=== PATIENT | male | born 1970 | race Two or more races ===

== ENCOUNTER 2021-08-25 18:52 | Emergency (ER) | payer MEDICAID ==
[~2021-08-25] VITALS: Ht 165.1 cm; Wt 65.3 kg
--- NOTE | 2021-08-25 19:37 | NUR ---
Assisted patient to restroom. Patient has unsteady gait and smells of ETOH. Patient admits to drinking [employer]. Found a small bottle of alcohol in patient pocket.
[2021-08-25 20:25] LABS: CREATININE 0.8 mg/dL (0.6-1.3); POTASSIUM 3.6 mmol/L (3.5-5.1)
[2021-08-25 20:31] LABS: BILIRUBIN,DIRECT 0.1 mg/dL (0.0-0.2); BILIRUBIN,TOTAL 0.3 mg/dL (0.2-1.0); HEMATOCRIT 41.4 % (36.7-47.1); MEAN CORPUSCULAR HEMOGLOBIN 31.7 uug (23.8-33.4); MEAN CORPUSCULAR VOLUME 92.5 fL (73.0-96.2); PLATELET COUNT (AUTO) 357 K/uL (152-348); TOTAL PROTEIN, SERUM 8.1 g/dL (6.4-8.2)
--- NOTE | 2021-08-25 22:27 | NUR ---
Patient sleeping on gurny with no distress noted.
[2021-08-25 22:38] LABS: *AMPHETAMINE, URINE NEGATIVE (NEGATIVE); *CANNABINOID, URINE NEGATIVE (NEGATIVE); *COCCAINE, URINE NEGATIVE (NEGATIVE); *OPIATE, URINE NEGATIVE (NEGATIVE); *PHENCYCLIDINE SCREEN,URINE NEGATIVE (NEGATIVE)
--- NOTE | 2021-08-26 05:20 | NUR ---
Patient awake, A/Ox3. Dr Gonzalez into re eval patient.
[2021-08-26] MEDS ORDERED: ONDA4TAB11 PO (05:39)
[2021-08-26] MEDS ORDERED: ONDANSETRON ODT 4 MG TAB.RAPDIS ONE (05:41)
[2021-08-26] MEDS ORDERED: ONDANSETRON ODT 4 MG TAB.RAPDIS SL ONE (05:45)
--- NOTE | 2021-08-26 05:46 | NUR ---
Patient able to ambulate in the hallway with steady gait.
--- NOTE | 2021-08-26 05:59 | NUR ---
Patient able to tolerate PO fluid with no N/V.
[2021-08-26 06:01] VITALS: BP 135/72
--- NOTE | 2021-08-26 06:01 | NUR ---
Patient discharged to home in stable condition. Written and verbal after care instructions given. Patient verbalizes understanding of instructions. Stressed follow up or return to ER for worsening s/s.
== END 2021-08-26 06:02 | disposition home or self-care (01) ==
LOC: ER 18:54 → EDBD 18:54 → ER 08-26 06:02
DX: F10.129 Alcohol abuse with intoxication, unspecified (principal); R03.0 Elevated blood-pressure reading, without diagnosis of hypertension
CPT/HCPCS: 36415; 85025; A4663; G0480; Q0162